=== PATIENT | female | born 1995 | race Caucasian/White ===

== ENCOUNTER 2016-07-02 15:34 | Emergency (ER) | payer MEDICAID, OTHER ==
[~2016-07-02] VITALS: Ht 165.1 cm; Wt 70.0 kg
[2016-07-02 15:36] VITALS: Ht 165.1 cm; Wt 70.0 kg
[2016-07-02] MEDS ORDERED: IBUPROFEN 800 MG TAB PO ONE (16:00)
--- NOTE | 2016-07-02 16:05 | ERD ---
ER Documentation Chief Complaint Date/Time DATE: 07/02/16 TIME: 16:00 Chief Complaint CHEST WALL PAIN RADIATING TO UPPER BACK X 2 DAYS HPI This is a 21-year-old female who presents the emergency department today complaining of chest wall pain for the past 4 days. Patient states that she has pain when she presses down on her chest. She states it is worse when she stretches out her arms. States that sometimes the pain moves up into her throat. States she has occasional shortness of breath when she gets the pain. States that she has not yet started taking her oral contraceptive pills. Denies any recent prolonged travel. Denies any cough, fevers or chills. ROS All systems reviewed and are negative except as per history of present illness. Medications Home Meds Active Scripts Acetaminophen* (Tylophen*) 500 Mg Capsule, 1 CAP PO Q6H Y for PAIN AND OR ELEVATED TEMP, #30 CAP Prov:MASON YODER PA-C 07/02/16 Naproxen* (Naprosyn*) 500 Mg Tablet, 500 MG PO BID Y for PAIN AND/OR INFLAMMATION, #30 TAB Prov:MASON YODER PA-C 07/02/16 Allergies Allergies: Coded Allergies: No Known Allergy (Unverified , 07/02/16) PMhx/Soc Medical and Surgical Hx: pt denies Medical Hx, pt denies Surgical Hx Hx Alcohol Use: No Hx Substance Use: No Hx Tobacco Use: No Smoking Status: Never smoker Physical Exam Vitals Vital Signs Date Time Temp Pulse Resp B/P Pulse Ox O2 Delivery O2 Flow Rate FiO2 07/02/16 15:36 98.1 78 18 120/80 98 Physical Exam Const: NAD Head: Atraumatic Eyes: Normal Conjunctiva ENT: Ears TMs normal. Nose no drainage. Throat no erythema no exudate Neck: Full range of motion..~ No meningismus. Resp: Clear to auscultation bilaterally. No absent breath sounds. No wheezing. Tenderness palpation sternum. Pain worse with rotating trunk to the left. Cardio: Regular rate and rhythm, no murmurs Abd: Soft, non tender, non distended. Normal bowel sounds Skin: No petechiae or rashes Neur: Awake and alert Psych: Normal Mood and Affect Results 24 hrs Current Medications Medications (Trade) Dose Ordered Sig/Miguel Route PRN Reason Start Time Stop Time Status Last Admin Dose Admin Ibuprofen (Motrin) 800 mg ONCE ONCE PO 07/02/16 16:00 07/02/16 16:01 DC 07/02/16 16:05 DIAGNOSTIC IMAGING REPORT Patient: ZACH GÓMEZ : 1995 Age: 21 Sex: F MR #: [id number] DOS: 07/02/16 0000 Ordering MD: MASON YODER PA-C Location: [facility] Room/Bed: PROCEDURE: XR Chest. CLINICAL INDICATION: Chest pain. TECHNIQUE: Single frontal view. COMPARISON: None. FINDINGS: The lungs are clear. The heart size is normal. There is no pleural effusion. There is no pneumothorax. IMPRESSION: 1. Normal chest radiograph. RPTAT: QQ .Connor Botello MD, MD Date Time Electronically viewed and signed by .Connor Botello MD, on 07/02/2016 16:25 .R/ CC: MASON YODER PA-C Procedures/MDM This is a 21-year-old female who presents the emergency department today complaining of chest wall pain for the past 4 days. Patient has substernal chest pain with compression as well as trunk rotation to the left. Given patient's complaint of feeling some shortness of breath I did obtain a chest x- ray Chest x-ray is normal. Low suspicion for PE, abscess, pleural effusion, pneumothorax, pneumonia. Symptoms at this time is consistent with costochondritis especially given the pain is substernal and worse with palpation and is reproducible with movement and trunk rotation to the left. She was given Motrin here in the emergency department patient reported that pain was still there but had improved.. Patient was given a prescription for Tylenol, Naprosyn At this time the patient is stable for discharge and outpatient management. Patient should follow up with their PCP in the next 1-2 days. They may return to the emergency department sooner for any persistent or worsening of symptoms. Patient and mother understood and agreed with the plan. Departure Diagnosis: Primary Impression: Chest wall pain Condition: Fair PROMASON PEREZ PA-C Jul 02, 2016 16:05
--- NOTE | 2016-07-02 16:25 | RADRPT ---
PROCEDURE: XR Chest. CLINICAL INDICATION: Chest pain. TECHNIQUE: Single frontal view. COMPARISON: None. FINDINGS: The lungs are clear. The heart size is normal. There is no pleural effusion. There is no pneumothorax. IMPRESSION: 1. Normal chest radiograph. RPTAT: QQ .Connor Botello MD, Date Time Electronically viewed and signed by .Connor Botello MD, on 07/02/2016 16:25 .R/
[2016-07-02] MEDS ORDERED: NAPR-260 PO (16:29)
[2016-07-02] MEDS ORDERED: ACET500C5 PO (16:29)
== END 2016-07-02 16:48 | disposition home or self-care (01) ==
LOC: FTE 15:34
DX: R07.89 Other chest pain (principal)
CPT/HCPCS: 71010; Z7502; Z7610